=== PATIENT | female | born 1985 | race Caucasian/White ===

== ENCOUNTER 2018-03-30 17:42 | Emergency (ER) | payer BC, MEDICAID, MEDICARE ==
[~2018-03-30] VITALS: Ht 162.6 cm; Wt 70.3 kg
[~2018-03-30 17:42] MED LIST: LAMO300T PO; LEVO1TBD PO; OXYC-133 PO
--- NOTE | 2018-03-30 18:21 | NUR ---
DR ALFARO AT THE BEDSIDE FOR MSE.
[2018-03-30] MEDS ORDERED: HYDROMORPHONE 1 MG/1 ML DISP.SYRIN IM ONE (18:30)
[2018-03-30] MEDS ORDERED: ONDANSETRON 4 MG/2 ML VIAL IM ONE (18:30)
[2018-03-30] MEDS ORDERED: HYDROMORPHONE 2 MG/1 ML DISP.SYRIN ONE (18:33)
[2018-03-30] MEDS ORDERED: ONDANSETRON 4 MG/2 ML VIAL ONE (18:33)
--- NOTE | 2018-03-30 18:38 | NUR ---
Patient discharged to home in stable conditon. Written and verbal after care instructions given. Patient verbalizes understanding of instructions. Pt walked out of ER w/ steady gait.
[2018-03-30 18:39] VITALS: BP 137/74
== END 2018-03-30 18:43 | disposition home or self-care (01) ==
LOC: ER 17:44
DX: K86.1 Other chronic pancreatitis (principal); Z88.5 Allergy status to narcotic agent; Z88.8 Allergy status to other drugs, medicaments and biological substances; Z79.891 Long term (current) use of opiate analgesic; Z79.899 Other long term (current) drug therapy
CPT/HCPCS: 96372 ×2; 99283; J1170; J2405; A4663

== ENCOUNTER 2019-02-02 17:35 | Emergency (ER) | payer MEDICARE, BC ==
[~2019-02-02] VITALS: Ht 162.6 cm; Wt 74.8 kg
[~2019-02-02 17:35] MED LIST changes: -OXYC-133 PO
[2019-02-02] MEDS ORDERED: IV NORMAL SALINE 1000 ML BAG IV ONE (18:15)
[2019-02-02 18:23] LABS: BASOPHILS % (AUTO) 0.5 % (0.0-2.0); EOSINOPHILS % (AUTO) 0.5 % (0.0-7.0); HEMATOCRIT 41.4 % (31.2-41.9); HEMOGLOBIN 14.1 g/dL (10.9-14.3); LYMPHOCYTES # (AUTO) 1.8 K/uL (20.0-40.0); LYMPHOCYTES % (AUTO) 24.2 % (20.5-51.5); MEAN CORPUSCULAR HEMOGLOBIN 30.1 uug (24.7-32.8); MEAN CORPUSCULAR HGB CONC 34 g/dL (32.3-35.6); MEAN CORPUSCULAR VOLUME 88.2 fL (75.5-95.3); MONOCYTES # (AUTO) 0.4 K/uL (2.0-10.0); MONOCYTES % (AUTO) 5.9 % (0.0-11.0); NEUTROPHILS # (AUTO) 5.2 K/uL (1.8-8.9); NEUTROPHILS % (AUTO) 68.9 % (38.5-71.5); PLATELET COUNT (AUTO) 253 K/uL (179-408); WHITE BLOOD COUNT (AUTO) 7.5 K/uL (3.8-11.8)
[2019-02-02 18:27] LABS: *BLOOD, URINE NEGATIVE (NEGATIVE); *CLARITY,URINE CLEAR (CLEAR); *COLOR,URINE YELLOW (YELLOW); *KETONES,URINE NEGATIVE (NEGATIVE); LEUKOCYTE ESTERASE ,URINE NEGATIVE (NEGATIVE); NITRITE, URINE NEGATIVE (NEGATIVE); UGLUCOSE NEGATIVE (NEGATIVE)
[2019-02-02 18:30] LABS: CREATININE 0.7 mg/dL (0.6-1.3); POTASSIUM 3.8 mmol/L (3.5-5.1)
[2019-02-02 18:34] LABS: *BILIRUBIN,URIN 1+ (NEGATIVE)
[2019-02-02 18:36] LABS: RBC,URINE 0-3 /HPF (0-3)
[2019-02-02 18:36] LABS: BILIRUBIN,DIRECT 0.1 mg/dL (0.0-0.2); BILIRUBIN,TOTAL 0.5 mg/dL (0.2-1.0); TOTAL PROTEIN, SERUM 7.5 g/dL (6.4-8.2)
[2019-02-02 18:37] LABS: *URINE HCG, QUAL NEGATIVE (NEGATIVE); BACTERIA,URINE NONE SEEN /HPF (NONE SEEN); MUCUS,URINE MODERATE /LPF (0-FEW); SQUAMOUS EPITHELIAL CELL,UR MANY /HPF (NONE SEEN); URINE AMORPHOUS URATE FEW /HPF; WBC,URINE 0-3 /HPF (0-3)
[2019-02-02] MEDS ORDERED: HYDROMORPHONE HCL 2 MG TABLET ONE (18:37)
[2019-02-02] MEDS ORDERED: ONDANSETRON 4 MG/2 ML VIAL ONE (18:37)
[2019-02-02] MEDS ORDERED: ONDANSETRON 4 MG/2 ML VIAL IV ONE (18:45)
[2019-02-02] MEDS ORDERED: HYDROMORPHONE HCL 2 MG TABLET PO ONE (18:45)
[2019-02-02] MEDS ORDERED: diphenhydrAMINE 50 MG/1 ML VIAL ONE (19:11)
[2019-02-02] MEDS ORDERED: diphenhydrAMINE 50 MG/1 ML VIAL IV ONE (19:15)
--- NOTE | 2019-02-02 20:10 | NUR ---
Patient discharged to home in stable conditon. Written and verbal after care instructions given. Patient verbalizes understanding of instructions. PATIENT LEFT WITH STABLE GAIT.
[2019-02-02 20:12] VITALS: BP 111/73
== END 2019-02-02 20:12 | disposition home or self-care (01) ==
LOC: ER 17:42
DX: G89.29 Other chronic pain (principal); R10.9 Unspecified abdominal pain; Z88.5 Allergy status to narcotic agent; Z88.8 Allergy status to other drugs, medicaments and biological substances; Z79.899 Other long term (current) drug therapy
CPT/HCPCS: 36415; 80048; 80076; 81000; 81001; 83690; 84703; 85025; 96374; 96375; 99283; J1200; J2405; A4663; J7030